=== PATIENT | male | born 1940 | race Caucasian/White ===

== ENCOUNTER 2017-02-11 06:34 | Day surgery (SDC) | payer MEDICARE, OTHER ==
[~2017-02-11] VITALS: Ht 180.3 cm; Wt 73.8 kg
[~2017-02-11 06:34] MED LIST: ASPI-725 PO
--- OUTSIDE RECORDS SUMMARY | 2017-02-11 06:38 | XMS REPORT | Referral Summary ---
Author Author [facility], [facility] Medicine Organization [facility], Family [facility] Address Unknown Phone Unavailable Care Team Providers Care Grinder Set Up Operator Universal Name Role Phone Jose Gaitan Primary Care Physician [phone] Encounter VC Date(s): 11/16/16 - 11/16/16 [facility], Family [address] [place] [address]- Discharge Diagnosis: Acute sinusitis Discharge Disposition: 01-Home or Self Care Attending Physician: Yaw Gaitan MD Admitting Physician: Yaw Gaitan MD Vital Signs Most recent to 1 oldest [Reference Range]: Temperature Tympanic 36.0 degC [36.6-38.1 degC] *LOW* (11/16/16 12:52 PM) Peripheral Pulse 84 bpm Rate [60-100 bpm] (11/16/16 12:52 PM) Respiratory Rate 16 br/min [14-20 br/min] (11/16/16 12:52 PM) Blood Pressure 130/58 mmHg [90-140/60-90 mmHg] (11/16/16 12:52 PM) SpO2 98 % (11/16/16 12:52 PM) Problem List Condition Effective Dates Status Health Status Informant Abdominal aortic Active aneurysm without rupture (disorder)(Confirmed ) Benign neoplasm of Active colon (disorder)(Confirmed ) Contracture of Active palmar fascia (disorder)(Confirmed ) History of prostate Active cancer(Confirmed) Personal history 2014 Active adenomatous polyps(Confirmed)1 Hyperlipidemia(Confi Active rmed) 1See NextGen. Allergies, Adverse Reactions, Alerts No Known Medication Allergies Medications Aspir 81 oral delayed release tablet 1 tabs, Oral, Daily, 0 Refill(s) Start Date: 10/01/14 Status: Ordered Crestor 5 mg oral tablet See Instructions, 1 TABS ORAL DAILY, # 30 tabs, 11 Refill(s), eRx: [facility] [id number], 1 TABS ORAL DAILY Start Date: 10/17/15 Status: Ordered ROSUVASTATIN CALCIUM 5MGTABLETS See Instructions, TAKE 1 TABLET BY MOUTH DAILY, # 30 tabs, eRx: [id number], TAKE 1 TABLET BY MOUTH DAILY Start Date: 11/05/16 Status: Ordered Results No data available for this section Immunizations Given and Recorded Vaccine Date Status Refusal Reason influenza virus vaccine, inactivated 07/23/16 Recorded influenza virus vaccine, inactivated 07/27/14 Recorded pneumococcal 13-valent conjugate vaccine 03/06/16 Given Procedures Procedure Date Related Diagnosis Body Site Colonoscopy1 12/21/13 Colonoscopy with biopsy 10/05/03 Hernia repair Miscellaneous2 Radical prostatectomy 1Diverticula, tubular adenomas x4, repeat in 3 years (2017). 2Bilat cataract surg approx 2011 Social History Social History Type Response Smoking Status Former smoker; Type: Pipe; Number of years: 40 Assessment and Plan Extracted from: Title: Acute OV-Cold Sx Author: Yaw Gaitan MD Date: 11/16/16 Impression and Plan Diagnosis Acute sinusitis (ATG19-XG J01.90, Discharge, Medical).
--- OUTSIDE RECORDS SUMMARY | 2017-02-11 06:38 | XMS REPORT | Referral Summary ---
Author Author [facility], [facility] Care Organization [facility] Address Unknown Phone Unavailable Care Team Providers Care Home Health Aid Name Role Phone Jose Gaitan Primary Care Physician [phone] Encounter VC Date(s): 12/31/15 - 12/31/15 [facility] [address] [place] [id number] Discharge Diagnosis: Acute bronchitis Discharge Disposition: 01-Home or Self Care Attending Physician: Jeremy Perez MD Admitting Physician: Jeremy Perez MD Vital Signs Most recent to 1 oldest [Reference Range]: Temperature Tympanic 36.6 degC [36.6-38.1 degC] (12/31/15 9:15 AM) Peripheral Pulse 78 bpm Rate [60-100 bpm] (12/31/15 9:15 AM) Blood Pressure 128/68 mmHg [90-140/60-90 mmHg] (12/31/15 9:15 AM) SpO2 99 % (12/31/15 9:15 AM) Problem List Condition Effective Dates Status Health [...] DAILY, # 30 tabs, 11 Refill(s), eRx: [id number], 1 TABS ORAL DAILY Start Date: 10/17/15 Status: Ordered Levaquin 500 mg oral tablet 500 mg 1 tabs, Oral, q24hr, X 10 days, # 10 tabs, 0 Refill(s), Pharmacy: [facility] [id number], 1 tabs Oral q24hr,x10 days Start Date: 12/31/15 Stop Date: 01/10/16 Status: Ordered Theraflu Flu & Cough 0 Refill(s) Start Date: 12/31/15 Status: Ordered Results No data available for this section Immunizations Vaccine Date Refusal Reason influenza virus vaccine, inactivated 07/27/14 Procedures Procedure Date Related Diagnosis Body Site Colonoscopy1 2013 Colonoscopy with biopsy 2002 Hernia repair Radical prostatectomy 1Diverticula, tubular adenomas x4, repeat in 3 years (2017). Social History Social History Type Response Smoking Status Former smoker; Type: Pipe; Number of years: 40 Assessment and Plan Extracted from: Title: Office Visit Note Author: Jeremy Perez MD Date: 12/31/15 Assessment/Plan Acute bronchitis I've recommendedLevaquin 500 mg daily for 10 days. Over -the-counter Mucinex may be of benefit as well. Encouraged increased rest and plenty offluid intake. If symptoms progress or worsen or further problems develop follow-up. Ordered: Office Visit Level 3 Est 47812 Orders: levofloxacin, 500 mg 1 tabs, Oral, q24hr, X 10 days, # 10 tabs, 0 Refill(s), Pharmacy: [facility] [id number], 1 tabs Oral q24hr,x10 days
--- OUTSIDE RECORDS SUMMARY | 2017-02-11 06:39 | XMS REPORT | Continuity of Care Document ---
Author Author Abby Romero [facility] Address [address] [place] [address] Phone Payers Payer name Insurance type Covered republican ID Authorization(s) Unknown Problems Condition Effective Dates (start - stop) Clinical Status Abdominal aortic aneurysm - *Chronic History of prostate cancer - *Controlled Hyperlipidemia LDL goal < 130 - *Chronic Xerosis of skin - *Chronic Urine incontinence - *Chronic Backache - *Chronic Family History Family Member Diagnosis Age At Onset Status Mother (Unknown) CVA (Stroke) Yes Sister (Unknown) CVA (Stroke) Yes Father (Unknown) Cancer - lung Yes Sister (Unknown) Lewy body dementia Yes Mother (Unknown) Hypertension Yes Mother (Unknown) CAD Yes Brother (Unknown) CAD Yes Social History Social History Element Description Quantity Unknown Allergies, Adverse Reactions, Alerts Substance Reaction Severity Status Unknown Medications Medication Instructions Dosage Effective Dates (start - stop) Status aspirin 325 mg tablet take 1 tablet (325MG) by oral route every day 325 MG - No Longer Active Aspir-81 81 mg tablet,delayed release take 1 tablet (81MG) by oral route every day 81 MG - Active bisacodyl 5 mg tablet Take 4 tabs at 10:00 am the day prior to procedure. - Active Miralax 17 gram/dose oral powder Mix 8.3 oz bottle with 64 oz of Gatorade, begin drinking at 12:00 noon the day prior to procedure, one glass every 10 min. until stools are clear. - Active atorvastatin 10 mg tablet take 1 tablet (10MG) by oral route every day 10 MG - Active Immunizations Vaccine Date Status Comments Unknown Results Test Name Date and Time Measure Units Reference Range Abnormal Flag Comments Unknown Vital Signs Date / Time: Height Weight Pulse Rate Blood Pressure Temperature /11:29:00 71.00 in 171.00 lbs 62 /min 112/62 mm[Hg] 9.7 F Procedures Procedure Date Unknown Encounters Encounter Location Date Patient Visit [facility] Patient Visit [facility] Patient Visit [facility] Patient Visit [facility] Advance Directives Directive Effective Date Unknown
--- OUTSIDE RECORDS SUMMARY | 2017-02-11 06:39 | XMS REPORT | Referral Summary ---
Author Author [facility], [facility] Organization [facility] Address Unknown Phone Unavailable Care Team Providers Care Textile Chemist Name Role Phone Jose Gaitan Primary Care Physician [phone] Encounter VC Date(s): 03/06/16 - 03/06/16 [facility] [address] [place] [address] [place] Discharge Diagnosis: Idiopathic peripheral neuropathy Discharge Diagnosis: History of colon polyps Discharge Diagnosis: Hyperlipidemia Discharge Diagnosis: History of prostate cancer Discharge Diagnosis: Abdominal aortic aneurysm without rupture Discharge Disposition: 01-Home or Self Care Attending Physician: Yaw Gaitan MD Admitting Physician: Yaw Gaitan MD Vital Signs Most recent to 1 oldest [Reference Range]: Peripheral Pulse 67 bpm Rate [60-100 bpm] (03/06/16 9:14 AM) Blood Pressure 120/64 mmHg [90-140/60-90 mmHg] (03/06/16 9:14 AM) Problem List Condition Effective Dates Status Health Status Informant Abdominal aortic Active aneurysm without rupture (disorder)(Confirmed ) Benign neoplasm of Active colon (disorder)(Confirmed ) Contracture of Active palmar fascia (disorder)(Confirmed ) History of prostate Active cancer(Confirmed) Personal history 2013 Active adenomatous polyps(Confirmed)1 Hyperlipidemia(Confi Active rmed) 1See [employer]. Allergies, Adverse Reactions, Alerts No Known Medication Allergies Medications Aspir 81 oral delayed release tablet 1 tabs, Oral, Daily, 0 Refill(s) Start Date: 10/01/14 Status: Ordered Crestor 5 mg oral tablet See Instructions, 1 TABS ORAL DAILY, # 30 tabs, 11 Refill(s), eRx: [facility]77, 1 TABS ORAL DAILY Start Date: 10/17/15 Status: Ordered Results No data available for this section Immunizations Vaccine Date Refusal Reason influenza virus vaccine, inactivated 07/27/14 pneumococcal 13-valent conjugate vaccine 03/06/16 Procedures Procedure Date Related Diagnosis Body Site Colonoscopy1 2013 Colonoscopy with biopsy 2002 Hernia repair Miscellaneous2 Radical prostatectomy 1Diverticula, tubular adenomas x4, repeat in 3 years (2016). 2Bilat cataract surg approx 2011 Social History Social History Type Response Smoking Status Former smoker; Type: Pipe; Number of years: 40 Assessment and Plan Extracted from: Title: Office Visit-[facility] * Author: Yaw Gaitan MD Date: 03/06/16 Impression and Plan Diagnosis Abdominal aortic aneurysm without rupture (AZO26-NQ I71.4, Discharge, Medical). Plan: Patient instructed to get Repeat US of Aorta in June and patient is to follow up in office in 1 year. . Diagnosis Idiopathic peripheral neuropathy (EHF07-XM G60.9, Discharge, Medical). Abdominal aortic aneurysm without rupture (NZJ85-AR I71.4, Discharge, Medical). History of prostate cancer (DAO65-MB Z85.46, Discharge, Medical). Hyperlipidemia (YBV11-QU E78.5, Discharge, Medical). History of colon polyps (MBW49-UF Z86.010, Discharge, Medical). Idiopathic peripheral neuropathy (NOS52-ZF G60.9, Discharge, Medical). Need for vaccination (QQE76-AY Z23, Working, Medical). Plan: Workup was done a year ago for peripheral neuropathy and we decided not to repeat that today. We discussed safety (wear shoes and surveillance for ulceration) and availability of treatment if the problem becomes painful. Follow-ups planned include abdominal aorta sonogram July 11 or after, and colonoscopy in December,. Otherwise continue current medications and follow- up yearly/when necessary.. Diagnosis History of colon polyps (ODP35-BN Z86.010, Discharge, Medical). Plan: Colonoscopy due December 2016. Diagnosis History of prostate cancer (KEM90-VT Z85.46, Discharge, Medical). Plan: Patient is s/p Prostatectomy, Rectal today was unremarkable. . Diagnosis Hyperlipidemia (FZP32-HD E78.5, Discharge, Medical). Plan: Last Lipid panel 02/24/16: LDL 91, HDL 45. Continue current medications.
--- OUTSIDE RECORDS SUMMARY | 2017-02-11 06:39 | XMS REPORT | Referral Summary ---
Author Author [facility], [facility] Organization [facility] Address Unknown Phone Unavailable Care Team Providers Care Watershed Manager Name Role Phone Jose Gaitan Primary Care Physician [phone] Encounter VC Date(s): 02/28/15 - 02/28/15 [facility], Family [address] [place] [address]- Discharge Diagnosis: Screening Discharge Diagnosis: Neuropathy, peripheral Discharge Diagnosis: Abdominal aortic aneurysm without rupture Discharge Diagnosis: History of prostate cancer Discharge Diagnosis: History of colon polyps Discharge Diagnosis: Actinic keratoses Discharge Diagnosis: Snoring Discharge Diagnosis: Hyperlipidemia Discharge Diagnosis: Hx of tobacco use, presenting hazards to health Discharge Diagnosis: Myalgia Discharge Disposition: 01-Home or Self Care Attending Physician: Yaw Gaitan MD Admitting Physician: Yaw Gaitan MD Vital Signs Most recent to 1 oldest [Reference Range]: Temperature Tympanic 36.8 degC [36.6-38.1 degC] (02/28/15 1:30 PM) Peripheral Pulse 68 bpm Rate [60-100 bpm] (02/28/15 1:30 PM) Blood Pressure 130/59 mmHg [90-140/60-90 mmHg] (02/28/15 1:30 PM) Problem List Condition Effective Dates Status [...] Status: Ordered Crestor 5 mg oral tablet 5 mg 1 tabs, Oral, Daily, # 30 tabs, 3 Refill(s), Pharmacy: [id number], 1 tabs Oral Daily Start Date: 06/24/15 Status: Ordered Results No data available for this section Immunizations Vaccine Date Refusal Reason influenza virus vaccine, inactivated 07/27/14 Procedures Procedure Date Related Diagnosis Body Site Destruction (eg, laser surgery, 02/28/15 electrosurgery, cryosurgery, chemosurgery, surgical curettement), premalignant lesions (eg, actinic keratoses); first lesion Destruction (eg, laser surgery, 02/28/15 electrosurgery, cryosurgery, chemosurgery, surgical curettement), premalignant lesions (eg, actinic keratoses); first lesion Destruction (eg, laser surgery, 02/28/15 electrosurgery, cryosurgery, chemosurgery, surgical curettement), premalignant lesions (eg, actinic keratoses); first lesion Destruction (eg, laser surgery, 02/28/15 electrosurgery, cryosurgery, chemosurgery, surgical curettement), premalignant lesions (eg, actinic keratoses); second through 14 lesions, each (List separately in addition to code for first lesion) Destruction (eg, laser surgery, 02/28/15 electrosurgery, cryosurgery, chemosurgery, surgical curettement), premalignant lesions (eg, actinic keratoses); second through 14 lesions, each (List separately in addition to code for first lesion) Destruction (eg, laser surgery, 02/28/15 electrosurgery, cryosurgery, chemosurgery, surgical curettement), premalignant lesions (eg, actinic keratoses); second through 14 lesions, each (List separately in addition to code for first lesion) Destruction (eg, laser surgery, 02/28/15 electrosurgery, cryosurgery, chemosurgery, surgical curettement), premalignant lesions (eg, actinic keratoses); second through 14 lesions, each (List separately in addition to code for first lesion) Destruction (eg, laser surgery, 02/28/15 electrosurgery, cryosurgery, chemosurgery, surgical curettement), premalignant lesions (eg, actinic keratoses); second through 14 lesions, each (List separately in addition to code for first lesion) Destruction (eg, laser surgery, 02/28/15 electrosurgery, cryosurgery, chemosurgery, surgical curettement), premalignant lesions (eg, actinic keratoses); second through 14 lesions, each (List separately in addition to code for first lesion) Destruction (eg, laser surgery, 02/28/15 electrosurgery, cryosurgery, chemosurgery, surgical curettement), premalignant lesions (eg, actinic keratoses); second through 14 lesions, each (List separately in addition to code for first lesion) Destruction (eg, laser surgery, 02/28/15 electrosurgery, cryosurgery, chemosurgery, surgical curettement), premalignant lesions (eg, actinic keratoses); second through 14 lesions, each (List separately in addition to code for first lesion) Colonoscopy1 2013 Colonoscopy with biopsy 2002 Hernia repair Radical prostatectomy 1Diverticula, tubular adenomas x4, repeat in 3 years (2017). Social History Social History Type Response Smoking Status Former smoker; Type: Pipe; Number of years: 40 Assessment and Plan Extracted from: Title: [facility] Author: Yaw Gaitan MD Date: 02/28/15 Assessment/Plan Abdominal aortic aneurysm without rupture Check sonogram. Actinic keratoses Liquid nitrogen treatment of 3 lesions. History of colon polyps Repeat colonoscopy due 2017. History of prostate cancer Recheck PSA. Hx of tobacco use, presenting hazards to health Screening noncontrast CT scan is indicated according to USPSTF criteria. Hyperlipidemia Check fasting lipids-see discussion above. Myalgia Include CPK and testing. Neuropathy, peripheral Probable idiopathic peripheral neuropathy. Workup for possible treatable causes to include CBC, B-12 level, TSH, fasting blood sugar. Screening Snoring Refer for sleep medicine evaluation. Follow-up based on lab/annually/when necessary.
--- OUTSIDE RECORDS SUMMARY | 2017-02-11 06:39 | XMS REPORT | Continuity of Care Document ---
Author Author [facility] Organization [facility] Address Unknown Phone Unavailable Allergies Active Description Code Type Severity Reaction Onset Reported/Identified Relationship to Patient Clinical Status Yes No Known Medication Allergies NKMA N/A N/A 10/01/2014 Medications Problems Procedures Results Encounters ACCT No. Visit Date/Time Discharge Status Pt. Type Provider Facility Loc./Unit Complaint [id number] 11/19/2013 11:21:00 11/19/2013 23 :59:59 CLS Outpatient
[2017-02-11 06:40] VITALS: BP 137/64; PULSE 70; RESP 16; TEMP 97.8; O2SAT 95; Ht 180.3 cm; Wt 73.8 kg
[2017-02-11] MEDS ORDERED: LIDOCAINE 1% (10mg/ml) 2ml SDV INJ ONE (07:00)
[2017-02-11] MEDS ORDERED: LR 1,000 ML IV SCH (07:00)
--- NOTE | 2017-02-11 07:31 | ANESPREOP ---
Anesthesia Record Date and Time DATE: 02/11/17 TIME: 07:27 Pre-Op Diagnosis personal history of colon polyps Proposed Surgical Procedure COLONOSCOPY NPO since: mn Allergies: Coded Allergies: No Known Allergies (Unverified , 02/11/17) Ht/Wt/BMI Height: 5 ' 11.00 " Weight: 73.800 kg BMI: 22.7 kg/m2 Vital Signs Date Time Temp Pulse Resp B/P Pulse Ox O2 Delivery O2 Flow Rate FiO2 02/11/17 06:40 97.8 70 16 137/64 95 Room Air Medications Inpatient Medications Current Medications Medications (Trade) Dose Ordered Sig/Elías Start Time Stop Time Status Last Admin Dose Admin Lactated Ringer's (Lactated Ringers) 1,000 ml @ 30 mls/hr Q24H 02/11/17 07:00 02/11/17 06:59 30 MLS/HR Aspirin (Aspirin) 81 Mg Tab.chew, 81 MG PO DAILY, (Reported) Last Taken: on 01/21/17 Currently on Beta Ning: No Medical/Surgical History Anesthesia PMH: Reports: Cancer (PROSTATE CA - 2006 PROSTATECTOMY), Other (aaa checked yearly and is stable ), Denies: *Angina, *Diabetes, *Dyspnea, * Hypertension, *IN, Anesthesia Reactions (NO AIRWAY ISSUES; LOW BP AFTER PROSTATE REMOVAL), Arthritis, Asthma, CHF, COPD, CVA/Stroke/TIA, Clotting Problems, Deep Vein Thrombosis, Glaucoma, Hepatitis, Hiatal Hernia, Malignant Hyperthermia, Pneumonia, Reflux, Renal Disease, Seizures, Sleep Apnea, Thyroid Disease, Tuberculosis Smoking Status: Former smoker (11 yrs ago ) Substance Use Type: does not use Alcohol Intake: none Past Surgical History Orthopedic Surgeries: No Abdominal Surgeries: Yes - ING HERNIA REPAIR Genitourinary Surgeries: Yes - PROSTATECTOMY Cardiac Surgeries: No Endocrine Surgeries: No Reproductive Surgeries: No Neurological Surgeries: No Ear Surgeries: No Nose Surgeries: No Throat Surgeries: No Other Surgeries: Yes - COLONOSCOPY Anesthesia Adverse Reactions: FOUND none Family Hx of Anesthesia Advers: none Hx of Motion Sickness: No Pertinent Findings EKG Rhythm: Sinus Rhythm Physical Exam Respiratory: Bilat breath sounds equal, Lungs clear Cardiovascular: FOUND Regular rate, rhythm, FOUND No murmur Airway Assessment Mallampati Score: II TMD: 3 Fingerbreadths Neck Extension: Good Overall Assessment: No Airway Concerns ASA: 3 Plan Anesthesia Plan: TIVA Discussion Discussed risks/options/alternatives of anesthesia and questions answered. Patient consents. Nursing pain assessment noted. Attestation Statement Prior to the delivery of any anesthetic medication, I examined the patient, developed the plan, obtained the patient's consent and discussed the risk and benefits of the procedure with the patient/guardian. KEITH GRIFFITHS CRNA Feb 11, 2017 07:31
[2017-02-11] MEDS ORDERED: LIDOCAINE 2% (20mg/ml) 5ml PF SDV ONE (08:07)
[2017-02-11] MEDS ORDERED: PROPOFOL 500mg 50 ML IV ONE (08:07)
[2017-02-11 08:25] VITALS: BP 110/58; PULSE 59; RESP 12; TEMP 96.8; O2SAT 97
[2017-02-11 08:40] VITALS: BP 117/57; PULSE 58; RESP 14; O2SAT 94
[2017-02-11 08:55] VITALS: BP 123/61; PULSE 60; RESP 14; O2SAT 95
--- NOTE | 2017-02-11 09:10 | ANESPO ---
Post-Op Note Date 02/11/17 Time: 08:25 Status Pt Participated in Evaluation: Pt participated in person Vital Signs Date Time Temp Pulse Resp B/P Pulse Ox O2 Delivery O2 Flow Rate FiO2 02/11/17 08:40 58 14 117/57 94 Room Air 02/11/17 08:25 96.8 Respiratory Function: Airway patent Cardiovascular Function: Regular pulse Mental Status: Alert/oriented Pain Level Intensity: 0 Hydration: IV infusing Complications during Recovery None apparent Follow-Up Instructions Instructions Per Surgeon KEITH GRIFFITHS CRNA Feb 11, 2017 09:10
--- NOTE | 2017-02-11 13:32 | OPNOTEF ---
DATE OF SERVICE 02/11/2017 SURGEON Escobar Dennison MD PREOPERATIVE DIAGNOSIS Personal history for adenomatous colon polyps. POSTOPERATIVE DIAGNOSIS Personal history for adenomatous colon polyps, sigmoid diverticulosis. PROCEDURE Colonoscopy ANESTHESIA TIVA BRIEF HISTORY/INDICATIONS Mr. Mckenzie is a 76-year-old gentleman who has a personal history of adenomatous colon polyps in the past. Patient presents today to undergo followup colonoscopy. For completeness please refer to notes included in the patient's chart. FINDINGS Upon colonoscopy there was no evidence for angiodysplastic lesions, polyps or david malignancies. The patient was found to have a moderate number of diverticula within the sigmoid colon region. DESCRIPTION OF PROCEDURE After informed consent was obtained, the patient was brought to the endoscopy suite and placed on the table in left lateral decubitus position. The patient subsequently underwent total intravenous anesthesia by the nurse deputy director of public works per my request. A formal time out was then completed. Next, a digital rectal examination was performed. Normal sphincter tone. No rectal masses were appreciated. An Olympus colonoscope was inserted in the anus and advanced through the lumen of the colon under direct visualization at all times until the cecum was ascertained. Triangulation of the teniae coli, ileocecal valve and appendiceal lumen were all visualized. The scope was then slowly withdrawn, again while maintaining visualization of the lumen at all times. The entire colon as stated above, was without evidence for angiodysplastic lesions, polyps or david malignancies. The patient was found to have a moderate number of diverticula within the sigmoid colon region. Once the colonoscope was withdrawn back into the rectal vault, a J-maneuver was then performed. No worrisome perianal pathology was noted. Scope was allowed to straighten and withdrawn through the anal verge. The patient tolerated the procedure without difficulty and was sent back to the preop area in stable condition. Secondary to the absence of findings upon this colonoscopy and the fact the patient is 76 years of age, this likely is the last colonoscopy the patient will need in his lifetime. One could make an argument for repeating colonoscopy at a 5-year interval although the patient will be 81 at that juncture in time. CLARIBEL
== END 2017-02-11 09:09 | disposition home or self-care (01) ==
LOC: SCU 06:34
PROVIDERS: ATTEND Surgery
DX: Z12.11 Encounter for screening for malignant neoplasm of colon (principal); K57.30 Diverticulosis of large intestine without perforation or abscess without bleeding; Z86.010 Personal history of colon polyps; I71.4 Abdominal aortic aneurysm, without rupture; E78.5 Hyperlipidemia, unspecified; Z79.82 Long term (current) use of aspirin; Z85.46 Personal history of malignant neoplasm of prostate
CPT/HCPCS: G0105; J7120